=== PATIENT | female | born 2000 | race Caucasian/White ===

== ENCOUNTER 2024-06-26 09:14 | Emergency (ER) | payer OTHER, SELFPAY ==
[2024-06-26 09:22] VITALS: BP 119/83; PULSE 75; RESP 18; TEMP 37; O2SAT 99; BMI 41.6
--- NOTE | 2024-06-26 09:42 | CRLHL7_ITS ---
For Patients: As a result of the Century Cures Act, medical imaging exams and procedure reports are released immediately into your electronic medical record. You may view this report before your referring provider. If you have questions, please contact your health care provider. INDICATION: Epigastric pain. TECHNIQUE: Ultrasound abdomen limited. Sonographic images of the right upper quadrant were obtained using noriega-scale and color Doppler images. COMPARISON: None. FINDINGS: Liver: Increased echogenicity of the liver. No suspicious hepatic lesions identified.. No suspicious masses. No intrahepatic biliary dilatation. Gallbladder: 2.3 centimeter stone at the neck of the gallbladder. Normal wall thickness. No pericholecystic fluid. Common bile duct: 3 mm. Pancreas: Unremarkable. Right kidney: Normal in size. Normal echotexture and cortex. No suspicious masses, stones, or hydronephrosis. Vasculature: Proximal abdominal aorta and IVC are unremarkable. IMPRESSION: 1. Cholelithiasis without sonographic evidence of cholecystitis. 2. Hepatic steatosis. Dictated by Jared Peterson MD @ 06/26/2024 12:19:45 PM (Electronically Signed)
--- NOTE | 2024-06-26 09:44 | ED_ITS ---
HPI - General Adult General Date Seen: 06/26/24 Chief complaint: Abdominal Pain Stated complaint: Back and abdominal pain Time Seen by Provider: 06/26/24 09:23 Source: patient Mode of arrival: ambulatory Limitations: no limitations History of Present Illness HPI narrative: Patient is a 23-year-old young woman who is here with epigastric pain with some radiation to the back. She says she 1st noted this a couple of days ago although was not severe. She woke up at 3:00 a.m. with what she says is severe pain associated with nausea, little bit of vomiting. She denies constipation or diarrhea, black or bloody stools. She does not have a history of prior pain before the last couple of days, denies a history of gastritis or reflux. She is sexually active, she says she gets regular periods and her last period was sometime in April. She has not had vaginal bleeding or discharge. She does note that she stopped her control a few months ago, does not desire . She says that she stopped it because of side effects that she did not like. No fevers, no abdominal surgeries. Does not smoke or drink significantly. Pain is improved now relative to what it was overnight. Related Data Home Medications ?Medication ?Instructions ?Recorded ?Confirmed clindamycin phosphate 1 % lotion 1 topical BID 05/29/23 08/29/23 Allergies Allergy/AdvReac Type Severity Reaction Status Date / Time No Known Drug Allergies Allergy Verified 06/26/24 09:28 Review of Systems Status of ROS: Reports: 10 or more systems reviewed and unremarkable except as noted in History and below [facility] History Bronchitis ?J40 - Bronchitis, not specified as acute or chronic (ICD-10) Family History Grandfather Coronary artery disease High cholesterol High blood pressure Stroke Social History What is your current living situation?: I presently have a place to live Problems where you live: no known problems In the past 12 months, utilities in danger of being shut off: no In past 12 months, lack of transportation kept you from medical appts, meetings, work, or getting things needed for daily living: no In the past 12 mos, have been you worried that your food would run out before you had money to buy more?: never true In the past 12 mos, the food you bought just didn't last and you didn't have money to buy more?: never true Non-prescribed substance use: denies use How often does anyone, including family, friends and others, physically hurt you : never How often does anyone, including family, friends and others, insult or talk down to you: rarely How often does anyone, including family, friends and others, threaten you with harm: never How often does anyone, including family, friends and others, scream or curse at you: never Little interest or pleasure in doing things: several days Feeling down, depressed, or hopeless: not at all Exam Narrative: Exam Narrative: Vital signs as noted above. In general, an alert, well-appearing patient. She looks comfortable at this time. Head: Normocephalic, atraumatic. Eyes: Pupils are equal reactive. Extraocular movements are full. Conjunctivae are normal. ENT: Mucous membranes are moist. Throat is normal. Neck: Supple without lymphadenopathy. Heart: Regular rate and rhythm. No murmur or rub. Lungs: Clear bilaterally. No increased work of breathing, crackles or wheezes. Abdomen: Soft and nontender. Exam limited somewhat by body habitus, no rebound guarding or rigidity. Extremities: Well perfused. No edema. No calf tenderness. Pulses intact. Neurologic: Patient is alert and oriented to person and place. Speech is fluent. Face is symmetric. Moves all extremities equally. Affect: Flat. Skin: Warm and dry. Well perfused. Const: Vital Signs, click to edit/add: Vital Signs - 24 hr 06/26/24 09:22 06/26/24 12:38 Temperature 98.6 F Pulse Rate [Pulse Oximeter] 75 75 Respiratory Rate 18 16 Blood Pressure [Ri ght Upper Arm] 119/83 103/64 Pulse Oximetry 99 99 Oxygen Delivery Me thod Room Air Room Air Documenting provider has reviewed patient's vital signs: yes Course Course ED Course: I looked with the bedside ultrasound, she does have cholelithiasis. Will order a formal ultrasound, labs. Give her some Toradol and Zofran for symptomatic relief. Given the pain is improved would be more suspicious of biliary colic versus cholecystitis but will await lab and imaging. Also discussed control with her, strongly recommended that she go in and talk about other options for prevention if she does not find the pill to be the right option for her. Workup here shows a mildly elevated white blood cell count 12 and half, normal hemoglobin, normal LFTs and lipase of 79. CRP is essentially normal at 1.1, UA is negative and test is negative. Formal right upper quadrant ultrasound read as showing cholelithiasis without sonographic evidence of cholecystitis as well as hepatic steatosis. Clinically she does not present as cholecystitis at this time. Findings reviewed with her, would recommend outpatient follow-up with General surgery. Warning signs reviewed. Vital Signs Vital signs: Initial Vital Signs Temperature 98.6 F 06/26/24 09:22 Temperature Source Temporal Artery Scan 06/26/24 09:22 Pulse Rate 75 06/26/24 09:22 Respiratory Rate 18 06/26/24 09:22 Blood Pressure 119/83 06/26/24 09:22 Blood Pressure Mean 95 06/26/24 09:22 Blood Pressure Position Sitting 06/26/24 09:22 Pulse Oximetry 99 06/26/24 09:22 Oxygen Delivery Method Room Air 06/26/24 09:22 Vital Signs Temperature 98.6 F 06/26/24 09:22 Pulse Rate 75 06/26/24 09:22 Respiratory Rate 18 06/26/24 09:22 Blood Pressure 119/83 06/26/24 09:22 Pulse Oximetry 99 06/26/24 09:22 Oxygen Delivery Method Room Air 06/26/24 09:22 Temperature 98.6 F 06/26/24 09:22 Pulse Rate 75 06/26/24 12:38 Respiratory Rate 16 06/26/24 12:38 Blood Pressure 103/64 06/26/24 12:38 Pulse Oximetry 99 06/26/24 12:38 Oxygen Delivery Method Room Air 06/26/24 12:38 Medications Administered Medications: Discontinued Medications Generic Name Dose Route Start Last Admin Trade Name Freq PRN Reason Stop Dose Admin Ketorolac Tromethamine 15 mg 06/26/24 09:42 06/26/24 10:15 Ketorolac 15 Mg/Ml Inj IVP 06/26/24 09:43 15 mg ONCE ONE Administration Ondansetron HCl 4 mg 06/26/24 09:42 06/26/24 10:15 Ondansetron 2 Mg/Ml Inj IVP 06/26/24 09:43 4 mg ONCE ONE Administration Medical Decision Making Lab Data Labs: Lab Results 06/26/24 Range/Units 10:05 WBC 12.46 H (4.50-11.00) K/uL RBC 5.28 H (4.00-5.20) m/uL Hgb 13.5 (12.0-16.0) gm/dL Hct 43.2 (33.0-51.0) % MCV 82 (80-100) fL MCH 26 (26-34) pg MCHC 31 L (32-36) gm/dL RDW Coeff of Feliciano 13.5 (11.5-15.5) % Plt Count 433 (140-440) K/uL Neut % (Auto) 68.6 (42.0-72.0) % Lymph % (Auto) 26.5 (20-44) % [place] % (Auto) 4.1 (0.0-11.0) % Eos % (Auto) 0.4 (0.0-7.0) % Baso % (Auto) 0.2 (0.0-3.0) % Neut # (Auto) 8.50 H (1.7-7.0) K/uL Lymph # (Auto) 3.30 H (0.90-2.90) K/uL [place] # (Auto) 0.50 (0.00-0.90) K/UL Eos # (Auto) 0.00 (0.00-0.50) K/uL Baso # (Auto) 0.00 (0.00-0.30) K/uL Abs Immat Gran (auto) 0.00 (0.00-0.30) K/uL Imm/Tot Granulo (auto) 0.2 % Sodium 137 (135-149) mmol/L Potassium 3.9 (3.6-5.1) mmol/L Chloride 102 (96-114) mmol/L Carbon Dioxide 26 (20-32) mmol/L Anion Gap 9 (7-15) mEq/L BUN 8 (5-24) mg/dL Creatinine 0.7 (0.5-1.5) mg/dL Estimated Creat Clear 94.32 Estimated GFR 125 ml/min Glucose 101 (60-115) mg/dL Calcium 9.7 (8.4-10.6) mg/dL Total Bilirubin 0.5 (0.1-1.5) mg/dL Direct Bilirubin 0.3 (0.0-0.5) mg/dL AST 31 (12-35) U/L ALT 28 (4-35) U/L Alkaline Phosphatase 110 (40-150) U/L C-Reactive Protein 1.1 H (0.5-1.0) mg/dL Total Protein 9.0 H (6.0-8.3) g/dL Albumin 4.9 (3.3-5.0) g/dL Lipase 79 (23-300) U/L Urine Color Yellow (Yellow) Urine Appearance Clear (Clear) Urine pH 8.0 (5.0-8.5) Ur Specific [place] 1.020 (1.000-1.030) Urine Protein Trace A (Negative) Urine Glucose (UA) Negative (Negative) Urine Ketones Negative (Negative) Urine Blood Negative (Negative) Urine Nitrite Negative (Negative) Urine Bilirubin Negative (Negative) Urine Urobilinogen 0.2 (0.2-1.0) Ur Leukocyte Esterase Negative (Negative) Urine RBC 0-2 (0-2) Urine WBC 0-2 (0-5) Ur Squamous Epith Cells Moderate A (None-Few) Urine Bacteria Moderate A (None) Urine HCG, Qual Negative (Negative) Discharge Plan Discharge Clinical Impression: Biliary colic Patient Disposition: Home, Self-Care Condition: Improved Instructions: Biliary Colic (ED) Additional Instructions: Your ultrasound shows that you have gallstones, but there is no evidence of inflammation of your gallbladder. I would recommend follow-up with General surgery to discuss elective cholecystectomy (gall bladder removal). Avoid fatty foods as these increase the risk of recurrent pain. If you have severe pain that persists beyond a couple hours or is associated with new symptoms such as fevers, chills, significant vomiting or other severe symptoms, return to the ER at any time. Please call [phone] schedule follow-up appointment with General surgery. I would also strongly encourage you to discuss other options for control with your regular doctor or Gynecology. Prescriptions: No Action clindamycin phosphate 1 % lotion 1 topical BID Rx Instructions: Apply to affected areas twice a day as directed Follow Up/Referrals: David Butler MD [Staff Physician] - Stand Alone Forms: [email or web address] Info Instructions
[2024-06-26 10:12] LABS: Appearance Urine Clear (Clear); Bilirubin Urine Negative (Negative); Blood Urine Negative (Negative); Color Urine Yellow (Yellow); Glucose Urine Negative (Negative); Ketones Urine Negative (Negative); Leukocyte Esterase Urine Negative (Negative); Nitrite Urine Negative (Negative); Protein Urine Trace (Negative); Urobilinogen Urine 0.2 (0.2-1.0)
[2024-06-26 10:15] LABS: Basophils Percent Auto 0.2 % (0.0-3.0); Eosinophils Percent Auto 0.4 % (0.0-7.0); Hematocrit 43.2 % (33.0-51.0); Hemoglobin* 13.5 gm/dL (12.0-16.0); Immature Granulocytes Pct Auto 0.2 %; Lymphocytes Percent Auto 26.5 % (20-44); Mean Corpuscular HGB Conc 31 gm/dL (32-36); Mean Corpuscular Hemoglobin 26 pg (26-34); Mean Corpuscular Volume 82 fL (80-100); Monocytes Percent Auto 4.1 % (0.0-11.0); Neutrophils Percent Auto 68.6 % (42.0-72.0); Platelet Count* 433 K/uL (140-440); RDW Coefficient of Variation % 13.5 % (11.5-15.5); Red Blood Count 5.28 m/uL (4.00-5.20); White Blood Count* 12.46 K/uL (4.50-11.00)
[2024-06-26] MEDS: ONDANSETRON 2 MG/ML inj 4 MG IVP (10:15)
[2024-06-26] MEDS: KETOROLAC 15 MG/ML inj IVP (10:15)
[2024-06-26 10:17] LABS: Ur HCG Qualitative* Negative (Negative)
[2024-06-26 10:21] LABS: Slide Review Reflex No
[2024-06-26 10:32] LABS: Albumin* 4.9 g/dL (3.3-5.0); Bacteria Urine Moderate; Chloride* 102 mmol/L (96-114); RBC Urine 0-2 (0-2); Squamous Epithelial Cell Urine Moderate (None-Few); WBC Urine 0-2 (0-5)
[2024-06-26 10:33] LABS: Potassium* 3.9 mmol/L (3.6-5.1); Sodium* 137 mmol/L (135-149)
[2024-06-26 10:35] LABS: Anion Gap 9 mEq/L (7-15); Aspartate Amino Transferase* 31 U/L (12-35); Bilirubin Direct* 0.3 mg/dL (0.0-0.5); Bilirubin Total* 0.5 mg/dL (0.1-1.5); Carbon Dioxide* 26 mmol/L (20-32); Creatinine* 0.7 mg/dL (0.5-1.5); Est. Creatinine Clearance* 94.32; Estimated Glomerular Filt Rate 125 ml/min
[2024-06-26 10:36] LABS: Alanine Aminotransferase* 28 U/L (4-35); Alkaline Phosphatase* 110 U/L (40-150); Blood Urea Nitrogen* 8 mg/dL (5-24); Calcium* 9.7 mg/dL (8.4-10.6); Glucose* 101 mg/dL (60-115); Lipase* 79 U/L (23-300)
[2024-06-26 10:38] LABS: C Reactive Protein* 1.1 mg/dL (0.5-1.0)
[2024-06-26 12:38] VITALS: BP 103/64; PULSE 75; RESP 16; O2SAT 99
== END 2024-06-26 12:41 | disposition home or self-care (01) ==
PROVIDERS: Emergency Provider Emergency Medicine
DX: R10.84 Generalized abdominal pain (principal)
CPT/HCPCS: 36415; 76705; 80048; 80076; 81001; 81025; 83690; 85025; 86140; 87086; 96374; 96375; 99284; J1885; J2405